=== PATIENT | female | born 1980 | race Caucasian/White ===

== ENCOUNTER → 2021-07-26 15:45 | Outpatient (CLI) | payer OTHER, SELFPAY ==
[2021-07-26 17:30] LABS: Hematocrit 44.9 % (37-47); Hemoglobin 14.2 g/dL (12.0-15.0); Mean Corp Hgb Conc 31.6 g/dL (32-36); Mean Corpuscular Hgb 26.1 pg (27.0-32.0); Mean Corpuscular Volume 82.4 fL (81-99); Mean Platelet Vol. 11.5 fl (6.2-12.0); Platelet Count 294 K/mm3 (150-450); RBC Distribution Width CV 18.2 % (11.6-14.6); RBC Distribution Width SD 53.5 fl (35.1-43.9); Red Blood Count 5.45 M/mm3 (4.2-5.4); White Blood Count 9.7 K/mm3 (4.4-11.0)
[2021-07-26 17:44] LABS: Follicle Stimulating Hormone 8.4 mIU/mL; Luteinizing Hormone 4.2 mIU/mL; Prolactin 4.2 ng/mL
[2021-07-26 17:50] LABS: Estradiol 66.1 pg/mL; Thyroid Stim Hormone (TSH) 0.85 uIU/mL (0.358-3.74)
[2021-07-26 18:57] LABS: HIV - WCH Non-Reactive (Nonreactive); Hepatitis B Surface Antibody Non-Reactive; Hepatitis C Antibody Non-Reactive (Nonreactive); Syphilis Antibodies Non-reactive
[2021-07-28 13:23] LABS: DHEA Sulfate 55.5 ug/dL (57.3-279.2)
[2021-07-29 00:07] LABS: Chlamydia By Nucleic Acid AMP Negative (Negative)
[2021-07-29 15:18] LABS: Gonococcus By Nucleic Acid AMP Negative (Negative)
[2021-07-30 13:19] LABS: HPV APTIMA, High Risk Negative (Negative)
[2021-07-30 13:35] LABS: HPV Reflexed? YES, CHARGE PATIENT
[2021-07-31 18:08] LABS: 17-Hydroxyprogesterone 27 ng/dL (.)
== END ==
LOC: WOBLAB 15:49
PROVIDERS: Visit Provider Obstetrics & Gynecology
DX: N93.9 Abnormal uterine and vaginal bleeding, unspecified (principal); Z11.3 Encounter for screening for infections with a predominantly sexual mode of transmission; Z12.4 Encounter for screening for malignant neoplasm of cervix
CPT/HCPCS: 36415; 82627; 82670; 83001; 83002; 83498; 84146; 84403; 84443; 85027; 86703; 86706; 86780; 86803; 87491; 87591; 87624; 88175; 82626; G0145

== ENCOUNTER → 2021-08-26 | Outpatient (CLI) | payer OTHER, SELFPAY ==
--- NOTE | 2021-08-26 10:45 | EMB_PTH ---
PATIENT: PANCHO DO LOC: [facility] U#:[id number] AGE/SX: 41/F ROOM: RE08/26/[address]: Dr. Francisco Javier Bell MD : [id number] BED: DIS: 08/26/2021 SPEC #: [id number] RECD: 08/26/21 11:28 STATUS: POLLY VEGA #: [id number] LIDA: 08/26/21 10:[address]: Francisco Javier Bell DEPT: SURGICAL PATHOLOGY RECD BY: Victoria Jain Tissues: Endometrium, NOS Procedures: Surgery Specimen Level IV HEADER OPERATION: Endometrial biopsy PRE-OP DIAGNOSIS: Irregular heavy bleeding TISSUE SUBMITTED: Endometrial biopsy MICROSCOPIC DIAGNOSIS Endometrium, biopsy: Simple and focal complex hyperplasia without atypia. AM:ginger 08/27/2021 MICROSCOPIC DESCRIPTION Slides are reviewed. GROSS DESCRIPTION Received in fixative is one container labeled with the patient's name and designated EM biopsy. The specimen consists of multiple irregular fragments of gurrola soft tissue that in aggregate measure 2.5 x 1.4 x 0.1 cm. The specimen is totally submitted in one cassette. / SJ:ginger 08/26/21 TC:5 CPT: 24734
== END | disposition home or self-care (01) ==
LOC: LABSPEC 11:07
PROVIDERS: Visit Provider Obstetrics & Gynecology
DX: N85.01 Benign endometrial hyperplasia (principal)
CPT/HCPCS: 88305

== ENCOUNTER → 2021-09-15 | Outpatient (CLI) | payer OTHER, SELFPAY ==
[2021-09-17 22:06] LABS: Chlamydia By Nucleic Acid AMP Negative (Negative)
[2021-09-18 12:52] LABS: Gonococcus By Nucleic Acid AMP Negative (Negative)
== END | disposition home or self-care (01) ==
LOC: LABSPEC 17:09
PROVIDERS: Visit Provider Obstetrics & Gynecology
DX: Z11.3 Encounter for screening for infections with a predominantly sexual mode of transmission (principal)
CPT/HCPCS: 87491; 87591